=== PATIENT | female | born 1990 | race Caucasian/White ===

== ENCOUNTER 2019-05-31 13:59 | Emergency (ER) | payer MEDICAID ==
[~2019-05-31] VITALS: Ht 165.1 cm; Wt 80.3 kg
[2019-05-31 14:10] VITALS: BP 121/64
== END 2019-05-31 19:59 | disposition home or self-care (01) ==
LOC: ER 13:59
DX: M62.838 Other muscle spasm (principal); R42 Dizziness and giddiness
CPT/HCPCS: 70450

== ENCOUNTER 2019-06-30 18:10 | Emergency (ER) | payer MEDICAID ==
[~2019-06-30] VITALS: Ht 170.2 cm; Wt 79.4 kg
[2019-06-30 19:30] VITALS: BP 126/89
[2019-06-30] MEDS ORDERED: ACETAMINOPHEN/CODEINE#3 (300/30mg) TAB PO ONE (20:15)
== END 2019-06-30 21:47 | disposition home or self-care (01) ==
LOC: ER 18:14
DX: I83.91 Asymptomatic varicose veins of right lower extremity (principal)
CPT/HCPCS: 93971